=== PATIENT | female | born 1965 ===

== ENCOUNTER → 2021-02-17 09:32 | Outpatient (CLI) | payer OTHER, MEDICAID, SELFPAY ==
[2021-02-17 11:15] LABS: COVID19 -Nasal RAPID Negative (Negative)
== END ==
PROVIDERS: Referring Provider Nurse Practitioner Family; Visit Provider Nurse Practitioner Family
DX: Z20.822 Contact with and (suspected) exposure to COVID-19 (principal)
CPT/HCPCS: 87635; C9803

== ENCOUNTER → 2021-02-18 15:50 | Outpatient (CLI) | payer OTHER, SELFPAY ==
--- NOTE | 2021-02-19 18:04 | DI.NM.S_ITS ---
DATE OF SERVICE: 02/18/2021 PROCEDURE PERFORMED: Pharmacologic vasodilator stress and rest myocardial perfusion imaging with gating to assess ejection fraction and regional wall motion. ORDERING PROVIDER: Dr. Srikanth Collado. INDICATIONS: The patient is a 55-year-old, morbidly obese, diabetic female with atypical chest discomfort. PHARMACOLOGIC VASODILATOR STRESS: Per protocol, 0.4 mg of regadenoson was infused, augmented by walking on the treadmill. With this, she had a normal hemodynamic response, achieving a maximum heart rate of 116 BPM (70% of her predicted maximum). She developed a headache but no chest discomfort or other anginal symptoms. Her resting ECG shows sinus rhythm with normal ST segments. With stress, there are no significant ST-segment shifts or arrhythmias. Per protocol, 23.5 millicuries of technetium-99m Myoview was injected and she was imaged 20 minutes later using a gated SPECT acquisition protocol. The day prior, she had been injected with 26.2 millicuries of technetium-99m Myoview while at rest and was imaged 30 minutes later, again using a gated SPECT acquisition protocol. FINDINGS: 1. Raw data: There is moderate tracer uptake with prominent breast shadows noted that clearly produce significant attenuation. The lung/heart ratio is normal at 0.28 with a normal TID ratio of 0.86. 2. Quantitated gated SPECT: The post-stress ejection fraction is estimated at 67% without any focal wall motion abnormality and specifically the anterior wall has normal contractility. The resting ejection fraction is 69% with a normal resting end-diastolic volume of 113 mL. 3. Post-stress supine images are somewhat marginal quality but show no compelling perfusion defect. There is a very subtle defect in the mid to distal anterior wall but sparing the apex that would be in a pattern consistent with a breast attenuation artifact, although the defect persists on the prone images. The resting images show a similar perfusion defect with no significant improvement in the mid anterior defect. IMPRESSION: 1. Probable normal myocardial perfusion study. 2. There is a small, subtle, fixed mid anterior perfusion defect that most likely reflects breast attenuation artifact given the absence of any wall motion abnormality in this distribution. A previous nontransmural infarction cannot be entirely excluded. There is no evidence for any myocardial ischemia. 3. Normal left ventricular systolic function without any focal wall motion abnormality. 4. No angina or ECG evidence of ischemia with pharmacologic vasodilator stress. [facility] - [place] doc#: [id number]/job#: [id number] dd: 02/19/2021 17:06:00 dt: 02/19/2021 17:56:00 DICTATING MD/COPIES TO: Sylvain Crews MD; Srikanth Collado MD COPIES MNE: KATHIA;
== END ==
PROVIDERS: Referring Provider Internal Medicine; Visit Provider Internal Medicine
DX: R07.89 Other chest pain (principal); E66.01 Morbid (severe) obesity due to excess calories; E11.9 Type 2 diabetes mellitus without complications
CPT/HCPCS: 78452; 93017; A9502; J2785